=== PATIENT | male | born 2005 | race Caucasian/White ===

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

== ENCOUNTER 2024-05-31 19:51 | Emergency (ER) | payer OTHER, SELFPAY ==
[2024-05-31 19:55] VITALS: BP 132/74; PULSE 94; RESP 16; TEMP 36.9; O2SAT 100
--- NOTE | 2024-05-31 20:16 | W.ED.GENAD ---
Discharge Plan Disposition Patient Disposition: Home Condition: Stable Discharge Details Clinical Impression: Burn of hand, left Primary Care Provider: Unknown,Unknown ED Provider: Santi Delacruz Home Meds and New Rx's Prescriptions: Continued dextroamphetamine-amphetamine 10 mg capsule,extended release 24hr 10 mg PO DAILY Patient Comments: TAKE 1 CAPSULE BY MOUTH EVERY DAY IN THE MORNING Discharge Instructions Additional Instructions: You have a superficial burn that will likely heal well on its own. You can take 600 mg of ibuprofen and 1000 mg of acetaminophen every 6 hours as needed If wounds not improving in a week follow-up with your primary care provider If you feel more ill or have severe worsening pain return to the emergency department for reevaluation. HPI General Mode of arrival: ambulatory. Date/Time Provider Initiated Documentation: 05/31/24 19:52. Limitations to Documentation: no limitations. Information obtained by: patient. History of Present Illness 19 year old M presents to the emergency department with the chief complaint of left hand burn, described as moderate, and is localized to the left and upper extremity. Patient reports no radiation. and it has been constant. No relieving factors improve symptom(s), No exacerbating factors reported . Patient notes no other symptoms.. Patient did receive the following treatments prior to arrival, none Related Data Home Medications ?Medication ?Instructions ?Recorded ?Confirmed dextroamphetamine-amphetamine ER 10 mg PO DAILY 05/31/24 05/31/24 10 mg 24hr capsule,extend release Allergies Allergy/AdvReac Type Severity Reaction Status Date / Time No Known Allergies Allergy Unverified 05/31/24 19:57 General Stated Complaint: Burn JAMES: 4 Review of Systems All systems reviewed & are unremarkable except as noted in HPI and below Constitutional Constitutional: Denies chills, Denies fever(s) and Denies weakness Cardiovascular Cardiovascular: Denies chest pain and Denies dyspnea Respiratory Respiratory: Denies cough and Denies dyspnea Gastrointestinal Gastrointestinal: Denies abdominal pain, Denies nausea and Denies vomiting Neurologic Neurologic: Denies weakness Exam Const General: no acute distress Orientation: alert HENIA Head: normal to inspection Ears: external ears normal General nose exam: external nose normal Mouth: moist mucous membranes Eyes General: appearance normal, both eyes and all related structures Neck Neck: normal visual inspection Resp Effort & Inspection: normal respiratory effort and able to speak in complete sentences Cardio Rate: regular rate Neuro General: patient alert and patient oriented x3 Extrem General: full ROM and capillary refill normal Psych Mental Status: mental status grossly normal Course Vital Signs Vital signs: Vital Signs Temperature 36.9 C 05/31/24 19:55 Pulse 94 H 05/31/24 19:55 Respiratory Rate 16 05/31/24 19:55 Blood Pressure 132/74 05/31/24 19:55 Pulse Oximetry 100 05/31/24 19:55 Temperature 36.9 C 05/31/24 19:55 Pulse 94 H 05/31/24 19:55 Respiratory Rate 16 05/31/24 19:55 Blood Pressure 132/74 05/31/24 19:55 Pulse Oximetry 100 05/31/24 19:55 Pain Level 9 05/31/24 19:55 Medical Decision Making 19-year-old male states 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 Did not fall or sustain other injuries. He says he was using cleaning solutions so is not sure if this contributed to it. He ran his hand under water for over 10 minutes. He has mild erythema over the lateral proximal left ring and pinky. There is no blisters or black discoloration. He is intact distal sensation. He has full range of motion of all joints. The right is consistent with a superficial burn. Will provide him smaller lidocaine to use as needed for discomfort. He will also take ibuprofen and Tylenol. Advise follow-up with PCP as needed return precautions given Differential Diagnosis Differential Diagnosis: Chemical burn versus superficial burn. Quality:SDOH Health Related Social Needs: No Data to Display PFSH All Active Problems (Updated 05/31/24 @ 20:19 by Santi Delacruz MD) Burn of hand, left (Acute) Medical History No significant past medical history Surgical History No significant past surgical history Social History Smoking/Tobacco Use Status: Never Smoking risk assessment performed?: Yes Alcohol Intake: never Additional Social history: goes to [employer] [facility] live in dorms AMARI HARPER 09/08/23
[2024-05-31] MEDS: Lidocaine/Epinephri/Tetracaine Topical Gel 3 ML TP (20:26)
== END 2024-05-31 20:26 | disposition home or self-care (01) ==
LOC: ER 20:29
PROVIDERS: Emergency Provider Emergency Medicine
DX: T23.102A Burn of first degree of left hand, unspecified site, initial encounter (principal); T31.0 Burns involving less than 10% of body surface; X15.0XXS Contact with hot stove (kitchen), sequela; Y93.G2 Activity, grilling and smoking food
CPT/HCPCS: 99283